=== PATIENT | male | born 1955 | race Caucasian/White ===

== ENCOUNTER 2018-07-02 09:22 | Day surgery (SDC) | payer BC ==
[~2018-07-02 09:22] MED LIST: Lactated Ringers 1,000 ML IV SCH; Sodium Chloride 0.9% 10 ML Syringe FLUSH PRN
[2018-07-02] MEDS ORDERED: Lactated Ringers 1,000 ML IV SCH (10:15)
[2018-07-02] MEDS ORDERED: Propofol 200 MG/20 ML SDV ONE (11:40)
[2018-07-02] MEDS ORDERED: fentaNYL 100 MCG/2 ML SDV ONE (11:40)
--- NOTE | 2018-07-02 15:01 | OR ---
PREOPERATIVE DIAGNOSES: 1. History of colon polyps. Last colonoscopy was about 5 years ago. 2. Positive family history of colon cancer. Mother was diagnosed in her 80s. POSTOPERATIVE DIAGNOSES: Normal colon. PROCEDURE: Colonoscopy. ANESTHESIA: Monitored anesthesia care. BOWEL PREP: Good. DESCRIPTION OF PROCEDURE: Filippo is a 62-year-old male who was brought to the endoscopy suite after discussing risks and benefits of the procedure. Informed consent was obtained for conscious sedation and colonoscopy with or without biopsy and/or polypectomy. We also discussed possibility of missed lesions. Pre-procedure exam was unremarkable. IV, oxygen, and monitors were placed. The patient was placed in the left lateral decubitus position. Sedation was administered and a digital rectal exam was performed and unremarkable. Colonoscope was passed into the rectum and slowly advanced all the way to the cecum. Cecum was viewed and photographed. The colonoscope was slowly withdrawn and the mucosa was closed observed in a direct circumferential manner. The ascending colon was unremarkable. The transverse colon was unremarkable. The descending colon was unremarkable. The sigmoid colon was unremarkable. Retroflexion was performed, and rectal mucosa was unremarkable. Scope was removed. The patient tolerated the procedure well. The patient was monitored until that baseline status. Discharge instructions were reviewed and the patient was discharged in good condition. COMPLICATIONS: None. TOTAL TIME: 12 minutes. ESTIMATED BLOOD LOSS: None. RECOMMENDATIONS/FOLLOW-UP: Given the patient's previous history of colon polyps as well as positive family history of colon cancer, I would recommend repeating colonoscopy again in 5 years. I would like to kindly thank Shanita Calderon for this referral. DMB: 07/02/2018 13:37:59 MODL: 07/02/2018 13:54:51 /[id number]
== END 2018-07-02 14:25 | disposition home or self-care (01) ==
LOC: VM.SDS 09:22
PROVIDERS: ATTEND Family Medicine
DX: Z86.010 Personal history of colon polyps (principal); Z80.0 Family history of malignant neoplasm of digestive organs; I10 Essential (primary) hypertension; R73.03 Prediabetes; R35.1 Nocturia; H61.21 Impacted cerumen, right ear; Z87.891 Personal history of nicotine dependence; Z13.220 Encounter for screening for lipoid disorders; Z12.5 Encounter for screening for malignant neoplasm of prostate; Z87.01 Personal history of pneumonia (recurrent); Z88.0 Allergy status to penicillin; Z88.6 Allergy status to analgesic agent; Z79.82 Long term (current) use of aspirin; Z79.899 Other long term (current) drug therapy
CPT/HCPCS: 45378; J2704; J3010; J7120